=== PATIENT | female | born 1940 | race Caucasian/White ===

== ENCOUNTER 2018-02-20 06:47 | Emergency (ER) | payer MEDICARE ==
[~2018-02-20] VITALS: Ht 167.6 cm; Wt 65.9 kg
[2018-02-20 07:49] LABS: BASOPHILS # (AUTO) 0.1 X10'3 (0-0.2); BASOPHILS % (AUTO) 0.8 % (0-1); EOSINOPHILS # (AUTO) 0.1 X10'3 (0-0.9); EOSINOPHILS % (AUTO) 1.3 % (0-6); HEMATOCRIT 41.5 % (35.0-45.0); HEMOGLOBIN 13.9 g/dl (12.0-16.0); LYMPHOCYTES % (AUTO) 26.9 % (21-51); MEAN CORPUSCULAR HEMOGLOBIN 31.8 PG (27.0-31.0); MEAN CORPUSCULAR HGB CONC 33.4 % (33.0-36.5); MEAN CORPUSCULAR VOLUME 95.3 FL (78-98); MEAN PLATELET VOLUME 7.5 FL (7.4-10.4); MONOCYTES # (AUTO) 0.5 X10'3 (0-0.9); MONOCYTES % (AUTO) 7.2 % (2-12); NEUTROPHILS # (AUTO) 4.7 X10'3 (1.8-7.7); NEUTROPHILS % (AUTO) 63.8 % (42-75); PLATELET COUNT 322 X10'3 (140-440); RED BLOOD COUNT 4.36 X10'6 (4.20-5.60); RED CELL DISTRIBUTION WIDTH 13.9 % (11.5-14.5); WHITE BLOOD COUNT 7.3 X10'3 (4.5-11.0)
[2018-02-20 08:02] LABS: ALANINE AMINOTRANSFERASE 14 U/L (12-78); ALBUMIN 3.8 G/DL (3.4-5.0); ALBUMIN/GLOBULIN RATIO 1.1 (1.1-1.5); ALKALINE PHOSPHATASE 69 IU/L (46-116); ANION GAP 8 (8-16); ASPARTATE AMINO TRANSFERASE 15 U/L (10-37); BILIRUBIN,TOTAL 0.4 MG/DL (0.1-1.0); BLOOD UREA NITROGEN 10 MG/DL (7-18); BUN/CREATININE RATIO 10.8 (6.6-38.0); CALCIUM 9.1 MG/DL (8.5-10.1); CHLORIDE 101 MMOL/L (99-107); CREATININE 0.93 MG/DL (0.40-0.90); GLUCOSE 106 MG/DL (70-104); POTASSIUM 3.3 MMOL/L (3.5-5.1); SODIUM 137 MMOL/L (135-145); TOTAL CARBON DIOXIDE 27.8 MMOL/L (24-32); TOTAL PROTEIN 7.4 G/DL (6.4-8.2); eGFR 59 ML/MIN
[2018-02-20 09:00] VITALS: BP 128/90
== END 2018-02-20 09:06 | disposition home or self-care (01) ==
LOC: ER 06:48
DX: R20.2 Paresthesia of skin (principal); F41.9 Anxiety disorder, unspecified; G89.29 Other chronic pain; Z90.710 Acquired absence of both cervix and uterus; Z98.51 Tubal ligation status
CPT/HCPCS: 36415; 70450; 71045; 80053; 82948; 85025; 93005; 99284

== ENCOUNTER 2023-03-17 09:20 | Emergency (ER) | payer MEDICARE ==
[~2023-03-17] VITALS: Ht 167.6 cm; Wt 70.9 kg
[2023-03-17 09:32] VITALS: BP 144/76; PULSE 86; TEMP 97.9; O2SAT 97
[2023-03-17] MEDS ORDERED: HYDROcodone/acetaminophen 10/325mg tab PO ONE (12:20)
[2023-03-17 12:27] VITALS: RESP 18
== END 2023-03-17 12:37 | disposition home or self-care (01) ==
LOC: ER 09:21
DX: M25.462 Effusion, left knee (principal); M25.562 Pain in left knee; G89.29 Other chronic pain; F41.9 Anxiety disorder, unspecified; Z79.899 Other long term (current) drug therapy
CPT/HCPCS: 73560; 99284

== ENCOUNTER 2023-09-17 10:05 | Emergency (ER) | payer MEDICARE ==
[~2023-09-17] VITALS: Ht 167.6 cm; Wt 66.8 kg
[2023-09-17] MEDS ORDERED: OXYC-658 PO (11:19)
[2023-09-17] MEDS: oxyCODONE IR 5mg (immed. release) tablet PO ONE (11:23)
[2023-09-17 11:36] VITALS: BP 125/91; PULSE 65; RESP 16; TEMP 97.9; O2SAT 94
== END 2023-09-17 11:57 | disposition home or self-care (01) ==
LOC: ER 10:05
DX: S50.11XA Contusion of right forearm, initial encounter (principal); G89.29 Other chronic pain; F41.9 Anxiety disorder, unspecified; F10.90 Alcohol use, unspecified, uncomplicated; Z90.710 Acquired absence of both cervix and uterus; Z98.890 Other specified postprocedural states; Z98.51 Tubal ligation status; W18.39XA Other fall on same level, initial encounter; Y93.89 Activity, other specified; Y92.89 Other specified places as the place of occurrence of the external cause; Y99.8 Other external cause status
CPT/HCPCS: 73080; 73090; 99284; A4565

== ENCOUNTER 2023-09-26 07:12 | Emergency (ER) | payer MEDICARE ==
[~2023-09-26] VITALS: Ht 167.6 cm; Wt 147.0 kg
[2023-09-26] MEDS ORDERED: LIDOcaine 5% patch TP SCH (08:00)
[2023-09-26] MEDS: LIDOcaine 5% patch TP ONE (08:21)
[2023-09-26] MEDS ORDERED: LIDO700A32 TD (08:32)
[2023-09-26 09:16] VITALS: BP 128/80; PULSE 80; RESP 16; TEMP 97.8; O2SAT 95
== END 2023-09-26 11:25 | disposition home or self-care (01) ==
LOC: ER 07:13
DX: M54.6 Pain in thoracic spine (principal); G89.29 Other chronic pain; F41.9 Anxiety disorder, unspecified; F10.90 Alcohol use, unspecified, uncomplicated; Z98.890 Other specified postprocedural states; Z98.51 Tubal ligation status
CPT/HCPCS: 72074; 99284